=== PATIENT | male | born 2000 | race Caucasian/White ===

== ENCOUNTER 2020-06-05 14:06 | Emergency (ER) | payer OTHER, SELFPAY ==
--- NOTE | 2020-06-05 14:28 | XR_ITS ---
PROCEDURE: XR HAND RT MIN 3V CLINICAL INDICATION: PUNCHED DOOR Posttraumatic pain COMPARISON: No exams were available for comparison FINDINGS: No fracture or dislocation. No lytic or blastic change. There is normal mineralization. The joint spaces are well-preserved. No significant degenerative/arthritic changes. No erosive changes evident. Other findings:None. IMPRESSION: No acute findings. Dictated by: Rohan Mane MD 06/05/2020 16:20 Rohan Mane MD in [place] 06/05/2020 16:21
[2020-06-05 14:38] VITALS: BP 107/67; PULSE 83; RESP 17; TEMP 36.5; O2SAT 98; BMI 21.7
--- NOTE | 2020-06-05 14:43 | HMH.EDUTC ---
[facility] [place] Disposition Clinical Impression: Hand contusion Qualifiers: Encounter type: initial encounter Laterality: right Qualified Code(s): S60.221A - Contusion of right hand, initial encounter Disposition: Home, Self-Care Condition on Discharge: Good Instructions: Contusion, How To Perform RICE (Rest, Ice, Compress, Elevate), DI for Abrasion Additional Instructions: *RICE, Rest the extremity, Ice 15-20 minutes 3-4 times daily, Compress- wear the franck wrap as discussed as much as possible to help reduce swelling and pain, Elevate the extremity when at rest *Franck wrap/bandage is for support and help control swelling, use it except in the shower. Be sure that is not to tight but not to loose either *Elevate when resting *Ibuprofen every 6-8 hours as needed for pain an inflammation. If need something more can take Tylenol in between doses of Ibuprofen to help Immediately follow up with your family doctor for new or worsening of symptoms, or no noticeable improvement over the next 3-5 days Clean abrasions on hand at least twice daily and apply neosporin Return if needed Straight to ER if any life threatening symptoms Referrals: Km Wilburn [Primary Care Provider] - As needed Time of Disposition: 15:10 Medical Decision Making - Kenan Inquiry Pt receiving controlled substance: No Kenan was queried for this patient: No Vital Signs: 06/05/20 14:38 06/05/20 15:15 Temperature 97.7 F 97.7 F Temperature Source Tympanic Oral Pulse Rate 83 Pulse Rate [Right Brachial] 83 Respiratory Rate 17 17 Blood Pressure 107/67 L Blood Pressure [Right Arm] 107/67 L Blood Pressure Mean [Right Arm] 80 Blood Pressure Source Automatic Cuff Blood Pressure Source [Right Arm] Automatic Cuff Blood Pressure Position Sitting 02 Sat by Pulse Oximetry 98 Oxygen Delivery Method Room Air Room Air - Radiology Data #1 Image(s): Hand Image Reviewed: Yes I reviewed the patient's radiology image Preliminary Findings: No Fracture Seen Medical Decision Narrative: abrasions to 4th and 5th knuckle area area cleaned and bandage applied [facility] [place] HPI - General Stated complaint: [id number] right hand injury, home accident Time Seen by Provider: 06/05/20 14:43 Mode of Arrival: Ambulatory Source of Information: Patient Limitations: No Limitations Description of Symptoms (Recalled from Triage Doc. by RN): Punched the door with right hand around 1200 HEENT Symptoms (Recalled from RN notes): No Resp Symptoms (Recalled from RN notes): No Skin Symptoms (Recalled from RN notes): No MS Symptoms (Recalled from RN notes): Yes Functional Status (Recalled from RN notes): wnl - History of Present Illness Provider Complaint: Patient states that he got upset earlier and punched his door States that he has some scratches on his knuckles and hurts in his ring and little finger when he bends them States that family wanted him to come and get it checked out - Related Data Previous Rx's Medication Instructions Recorded ondansetron HCl 4 mg tablet 4 mg PO TID PRN 5 Days #14 tab 01/03/19 ranitidine HCl 150 mg tablet 150 mg PO DAILY #30 tab 01/03/19 Allergies Allergy/AdvReac Type Severity Reaction Status Date / Time No Known Allergies Allergy Unverified 01/03/19 17:33 - Worker's Comp Is this a Worker's Comp case?: No [facility] History - Hepatitis A Screen Drug use history?: No High risk sexual behaviors?: No History of sexually transmitted infection?: No Currently employed?: No Childcare worker?: No Do you have indoor plumbing?: Yes Do you have electricity?: Yes Attestation statement:: This patient has been screened for Hepatitis A risk factors. I have reviewed the patient's past medical history: Yes Other Medical History: Reports: Sinus Problems Laterality Cases: Bilateral: Tonsillectomy Amputation: No Fractures: No - Social History Smoking Status: Light tobacco smoker Tobacco Type: smokeless tobacco Alcohol Intake: never Substan
[2020-06-05 15:15] VITALS: BP 107/67; PULSE 83; RESP 17; TEMP 36.5; O2SAT 98
== END 2020-06-05 15:16 | disposition home or self-care (01) ==
PROVIDERS: Emergency Provider Nurse Practitioner; PCP Pediatrics
DX: S60.221A Contusion of right hand, initial encounter (principal); W22.09XA Striking against other stationary object, initial encounter; Y92.019 Unspecified place in single-family (private) house as the place of occurrence of the external cause
CPT/HCPCS: 73130; 99202; G0463

== ENCOUNTER 2020-09-16 13:10 | Emergency (ER) | payer OTHER, SELFPAY ==
[2020-09-16 13:10] VITALS: BP 119/63; PULSE 62; RESP 18; TEMP 36.7; O2SAT 97; BMI 23.8
[2020-09-16 13:25] VITALS: BP 119/63; PULSE 62; RESP 18; TEMP 36.7; O2SAT 97; BMI 23.8
--- NOTE | 2020-09-16 13:59 | HMH.EDUTC ---
[facility] [place] Disposition Clinical Impression: Eye problem Disposition: Home, Self-Care Condition on Discharge: Good Instructions: How to Care for Your Contact Lenses, How to Remove Your Contact Lenses Additional Instructions: Follow up with your Eye Doctor if you have any pain or changes in your vision Wear your glasses for the next couple of days to allow your eye time to rest Return if needed Straight to ER if any life threatening symptoms Referrals: Km Wilburn [Primary Care Provider] - As needed [facility] [Other] Time of Disposition: 14:07 Medical Decision Making - Kenan Inquiry Pt receiving controlled substance: No Kenan was queried for this patient: No Vital Signs: 09/16/20 13:10 09/16/20 13:25 Temperature 98.1 F 98.1 F Temperature Source Oral Oral Pulse Rate [Right] 62 62 Respiratory Rate 18 18 Blood Pressure [Right Arm] 119/63 119/63 Blood Pressure Mean [Right Arm] 81 81 Blood Pressure Source [Right Arm] Automatic Cuff Blood Pressure Position [Right Arm] Sitting 02 Sat by Pulse Oximetry 97 97 Oxygen Delivery Method Room Air Room Air [facility] [place] HPI - General Stated complaint: contact stuck in Lt eye Time Seen by Provider: 09/16/20 13:59 Mode of Arrival: Ambulatory Source of Information: Patient Limitations: No Limitations Description of Symptoms (Recalled from Triage Doc. by RN): Patient c/o contact being stuck in left eye since this AM. Patient stated, I went to put it in this morning but it is off center and cannot get it out. HEENT Symptoms (Recalled from RN notes): Yes Resp Symptoms (Recalled from RN notes): No Skin Symptoms (Recalled from RN notes): No MS Symptoms (Recalled from RN notes): No Functional Status (Recalled from RN notes): WNL - History of Present Illness Provider Complaint: Patient states that as he was putting in his contact in his left eye earlier it folded up and went up into his eyelid State that he has been unable to get it out and feels like it is stuck in the inner corner of his eyelid State that he has not been rubbing it instead he came straight in to get checked to see if we could get it out - Related Data Previous Rx's Medication Instructions Recorded ondansetron HCl 4 mg tablet 4 mg PO TID PRN 5 Days #14 tab 01/03/19 ranitidine HCl 150 mg tablet 150 mg PO DAILY #30 tab 01/03/19 Allergies Allergy/AdvReac Type Severity Reaction Status Date / Time No Known Allergies Allergy Unverified 01/03/19 17:33 - Worker's Comp Is this a Worker's Comp case?: No [facility] History - Hepatitis A Screen Drug use history?: No High risk sexual behaviors?: No History of sexually transmitted infection?: No Currently employed?: No Childcare worker?: No Do you have indoor plumbing?: Yes Do you have electricity?: Yes Attestation statement:: This patient has been screened for Hepatitis A risk factors. I have reviewed the patient's past medical history: Yes Other Medical History: Reports: Sinus Problems Laterality Cases: Bilateral: Tonsillectomy Amputation: No Fractures: No - Social History Smoking Status: Light tobacco smoker Tobacco Type: smokeless tobacco Alcohol Intake: never Substance Use Type: denies use Occupational Status: other Housing: house Household Members: family Family Hx:: No significant family history ROS Obtained: Yes All systems reviewed & no additional complaints, Yes Systems reviewed as appropriate & no additional complaints - Constitutional Constitutional: Reports system reviewed and no additional complaints, except as docu - Eyes Eyes: Reports other (contact stuck in left eye) - ENT Ears, Nose, Mouth, and Throat: Reports system reviewed and no additional complaints, except as docu Physical Exam - General General appearance: alert, in no apparent distress - Eye Eye exam: Present: other (Upon opening left eye, observed contact in inner upper corner of eye, Contact easily removed and patient denies pain or watering Patien
[2020-09-16 14:08] VITALS: BP 119/63; PULSE 62; RESP 18; TEMP 36.7; O2SAT 97
== END 2020-09-16 14:10 | disposition home or self-care (01) ==
PROVIDERS: Emergency Provider Nurse Practitioner; PCP Pediatrics
DX: T15.02XA Foreign body in cornea, left eye, initial encounter (principal); F17.210 Nicotine dependence, cigarettes, uncomplicated
CPT/HCPCS: 99202; G0463

== ENCOUNTER 2022-10-25 15:33 | Emergency (ER) | payer OTHER, SELFPAY ==
[2022-10-25 15:43] VITALS: BP 103/64; PULSE 61; RESP 16; TEMP 37.3; O2SAT 98; BMI 20.3
[2022-10-25 16:22] VITALS: BP 103/64; PULSE 73; O2SAT 99
[2022-10-25 16:30] VITALS: BP 93/65; PULSE 63; O2SAT 98
--- NOTE | 2022-10-25 16:47 | HMH.EDGENADL ---
Discharge Plan Disposition Patient Disposition: Home, Self-Care Prescriptions Prescriptions: New amoxicillin-pot clavulanate 875-125 mg tablet 1 tab PO BID 7 Days Qty: 14 0RF No Action ondansetron HCl [Zofran] 4 mg tablet 4 mg PO TID PRN (Reason: nausea and vomiting) 5 Days Qty: 14 0RF ranitidine HCl [Heartburn Relief (ranitidine)] 150 mg tablet 150 mg PO DAILY Qty: 30 0RF Referrals Follow up/Referrals: Provider,Referral, MD [Emergency Nurse] - See instructions Activity Restrictions/Add. Instructions Additional Instructions/Restrictions: Call your family doctor to establish care for this visit to the emergency department and schedule follow-up within 48 hours to ensure improvement. If you have any worsening of your condition or any other concerning signs or symptoms, return to the emergency department or your primary care doctor for further evaluation. Take Augmentin for the entire course. Follow-up with dentistry to get your tooth pulled Clinical Impressions Clinical Impression: Abscess, periapical Discharge ED Provider: Juan Alberto Kendall General Adult HPI General Chief complaint: Dental/Oral Stated complaint: abcess on left side of jaw Time Seen by Provider: 10/25/22 16:23 Mode of Arrival: Ambulatory Source of Information: Patient Limitations: No Limitations Description of Symptoms (Recalled from ER Triage Doc. by RN): Pt reports possible abscess in L jaw line. Pt reports first noticed area in [facility] of this year, states was seen in ER [facility] was discharged on antibiotics and told to f/u with a dentist. Pt reports unable to get into any dentist near where he lives. Pt reports PCP Km Wilburn was refilling his amoxicillin until 2 weeks ago. Pt reports increasing pain in the past few days. No none fevers. History of Present Illness HPI narrative: 21-year-old male with history of dental caries presenting with jaw pain. Patient states that he has had abscesses in his jaw for the past 7 months. On and off been on amoxicillin. Presenting with jaw pain today. Denies fevers or chills, difficulty chewing or swallowing, difficulty breathing, stridor, or any other concerns. No range of motion difficulties of neck. Came in out of evaluation to see if something needed drained. Has not followed up with dentist. Related Data Previous Rx's Medication Instructions Recorded ondansetron HCl 4 mg tablet 4 mg PO TID PRN nausea and 01/03/19 (Zofran) vomiting 5 days #14 tabs ranitidine HCl 150 mg tablet 150 mg PO DAILY #30 tabs 01/03/19 (Heartburn Relief (ranitidine)) amoxicillin 875 mg-potassium 1 tab PO BID 7 days #14 tabs 10/25/22 clavulanate 125 mg tablet Allergies Allergy/AdvReac Type Severity Reaction Status Date / Time No Known Allergies Allergy Unverified 01/03/19 17:[address] [facility] Disclaimer: The information contained in this section may have been updated after the patient was seen, as this information can be updated by other users. Social History Smoking Status: Never smoker alcohol intake: never substance use type: denies use current occupational status: other Travel in the last 8 weeks: None household members: family housing: house ROS Obtained: Yes All systems reviewed & no additional complaints except as documented Physical Exam General General appearance: alert, in no apparent distress and other ( ) Head Head exam: atraumatic and normocephalic Eye Eye exam: Present normal appearance, PERRL and EOMI ENT ENT exam: Present mucous membranes moist and other (Periapical abscess base of tooth 17) Neck Neck exam: Present normal inspection, full ROM and trachea midline Respiratory Respiratory exam: Absent respiratory distress, wheezes, stridor, accessory muscle use or prolonged expiratory phase Cardiovascular Cardiovascular exam: Present regular rate and normal rhythm Abdominal Exam Abdominal exam: Present soft; Absent distention, tenderness, guarding, rebo
--- NOTE | 2022-10-25 17:20 | PC.NURSE ---
Rounded on pt. No needs voiced at this time. Call light within reach.
--- NOTE | 2022-10-25 17:33 | PC.NURSE ---
rounded on pt, pt reports mouth is numb, cotton balls removed from mouth. Notified ER pt reports his mouth is numb
[2022-10-25 18:01] VITALS: BP 100/72; PULSE 58; RESP 15; TEMP 37.2; O2SAT 98
== END 2022-10-25 18:11 | disposition home or self-care (01) ==
PROVIDERS: Emergency Provider Emergency Medicine; PCP Pediatrics
DX: R68.84 Jaw pain (principal)
CPT/HCPCS: 99283